=== PATIENT | female | born 1965 | race African-American/Black ===

== ENCOUNTER → 2017-04-18 | Outpatient (CLI) | payer MEDICARE, MEDICAID ==
[~2017-04-18] MED LIST: ABILIFY; FLUT1DIS IH; HTN MEDS; WELLBUTRIN; lisinopril
== END | disposition home or self-care (01) ==
LOC: RAD 10:04
DX: M17.11 Unilateral primary osteoarthritis, right knee (principal)
CPT/HCPCS: 72100; 72170; 73562

== ENCOUNTER 2017-06-22 07:44 | Emergency (ER) | payer MEDICARE, MEDICAID ==
[~2017-06-22] VITALS: Ht 172.7 cm; Wt 136.4 kg
[2017-06-22] MEDS ORDERED: IPRATROPIUM BROMIDE (0.02%) 0.5MG/2.5ML NEB HHN STA ×2 (09:37→12:57)
[2017-06-22] MEDS ORDERED: METHYLPREDNISOLONE SOD SUCC 125 MG/2 ML VIAL IM STA (09:37)
[2017-06-22] MEDS ORDERED: ALBUTEROL (0.083%) 2.5MG/3ML NEB HHN STA ×2 (09:37→12:57)
[2017-06-22 13:45] VITALS: BP 150/72
== END 2017-06-22 14:13 | disposition home or self-care (01) ==
LOC: ER 08:47
DX: J45.901 Unspecified asthma with (acute) exacerbation (principal); I10 Essential (primary) hypertension; F17.200 Nicotine dependence, unspecified, uncomplicated
CPT/HCPCS: 71045; 94640; 96372; 99284; J2930; J7611

== ENCOUNTER 2022-02-17 08:12 | Emergency (ER) | payer MEDICARE, MEDICAID ==
[~2022-02-17] VITALS: Ht 172.7 cm; Wt 135.0 kg
[2022-02-17 08:18] VITALS: BP 167/103
[2022-02-17] MEDS ORDERED: PREDNISONE 20MG TABLET PO ONE (09:30)
[2022-02-17] MEDS ORDERED: FAMOTIDINE 20MG TABLET PO ONE (09:30)
[2022-02-17] MEDS ORDERED: DIPHENHYDRAMINE 50MG CAPSULE PO ONE (09:30)
[2022-02-17] MEDS ORDERED: P20 MT (10:51)
[2022-02-17] MEDS ORDERED: FAMO-135 MT (10:51)
[2022-02-17] MEDS ORDERED: DIPH25CA83 PO (10:51)
== END 2022-02-17 11:10 | disposition home or self-care (01) ==
LOC: ER 08:14
DX: L50.9 Urticaria, unspecified (principal); E11.9 Type 2 diabetes mellitus without complications; I10 Essential (primary) hypertension
CPT/HCPCS: 99284; J7512; Q0163

== ENCOUNTER 2023-04-03 08:03 | Emergency (ER) | payer MEDICARE, MEDICAID ==
[~2023-04-03] VITALS: Ht 172.7 cm; Wt 123.0 kg
[~2023-04-03 08:03] MED LIST changes: +DIPH25CA83 PO; +FAMO-135 MT; +LEVO750T68 PO; +METR-167 PO; +P20 MT; +TOPUD PO
[2023-04-03 08:13] VITALS: BP 142/79; O2SAT 97
[2023-04-03] MEDS ORDERED: AMOX-494 MT ×5 (08:27→08:29)
[2023-04-03] MEDS ORDERED: AMOXICILLIN 500 MG CAPSULE PO ONE (08:30)
[2023-04-03 08:45] VITALS: PULSE 89; RESP 18; TEMP 97.8
== END 2023-04-03 08:47 | disposition home or self-care (01) ==
LOC: ER 08:03
DX: J02.9 Acute pharyngitis, unspecified (principal)
CPT/HCPCS: 99283

== ENCOUNTER 2023-04-23 01:42 | Emergency (ER) | payer MEDICARE, MEDICAID ==
[~2023-04-23] VITALS: Ht 172.7 cm; Wt 136.0 kg
[~2023-04-23 01:42] MED LIST changes: +AMOX-494 MT
[2023-04-23 01:58] VITALS: BP 144/86; O2SAT 97
[2023-04-23] MEDS ORDERED: NAPR275T96 MT (04:00)
[2023-04-23] MEDS ORDERED: T3 PO (04:00)
[2023-04-23 04:25] VITALS: PULSE 75; RESP 20; TEMP 97.9
== END 2023-04-23 04:26 | disposition home or self-care (01) ==
LOC: ER 02:12
DX: G89.29 Other chronic pain (principal); M25.562 Pain in left knee; E11.9 Type 2 diabetes mellitus without complications; I10 Essential (primary) hypertension; J44.9 Chronic obstructive pulmonary disease, unspecified; Z98.890 Other specified postprocedural states
CPT/HCPCS: 73560; 93971; 99284